=== PATIENT | male | born 1970 | race Caucasian/White ===

== ENCOUNTER 2018-11-30 10:33 | Inpatient (IN) | payer OTHER ==
[2018-11-30 11:05] VITALS: BMI 28.1
--- NOTE | 2018-11-30 12:25 | HP ---
COWS - Scale Resting Pulse: 0= [place] 80 or Below Sweatin= Chills/Flushing Restless Observation: 1= Difficult to Sit Still Pupil Size: 0= Normal to Room Light Bone or Joint Aches: 1= Mild Discomfort Runny Nose/ Eye Tearin= Runny Nose/Eyes GI Upset > 30mins: 2= Nausea/Diarrhea Tremor Observation: 2= Slight Tremor Visible Yawning Observation: 1= 1-2x During Session Anxiety or Irritability: 2=Irritable/Anxious Goose Flesh Skin: 3=Piloerection COWS Score: 15 CIWA Score Nausea/Vomitin-Mild Nausea/No Vomiting Muscle Tremors: 4-Moderate,w/Arms Extend Anxiety: 4-Mod. Anxious/Guarded Agitation: 2 Paroxysmal Sweats: 1-Minimal Palms Moist Orientation: 1-Uncertain about Date Tacttile Disturbances: 0-None Auditory Disturbances: 0-None Visual Disturbances: 1-Very Mild Sensitivity Headache: 2-Mild CIWA-Ar Total Score: 16 - Admission Criteria OASAS Guidelines: Admission for Medically Managed Detox: Requires at least one of the followin. CIWA greater than 12 2. Seizures within the past 24 hours 3. Delirium tremens within the past 24 hours 4. Hallucinations within the past 24 hours 5. Acute intervention needed for co occurring medical disorder 6. Acute intervention needed for co occurring psychiatric disorder 7. Severe withdrawal that cannot be handled at a lower level of care (continued vomiting, continued diarrhea, abnormal vital signs) requiring intravenous medication and/or fluids 8. Patient presents the following: CIWA greater than 12 Admission Criteria Met: Admission criteria met Admission ROS [facility] Chief Complaint: I'm a mess, I just want to stop using and get better, I feel like I can do it, I did it before Allergies/Adverse Reactions: Allergies Allergy/AdvReac Type Severity Reaction Status Date / Time No Known Allergies Allergy Verified 11/30/18 11:05 History of Present Illness: Others' Prescriptions 48 yo gentleman here for detox from alcohol, opiates and benzodiazepine. As noted below, he was on suboxone at one point but did not stay on it. Currently homeless and unemployed, interested in residential program after detox. History of drug related seizure, history of overdose and black outs. Longest times sober was seven years [id number]. urine tox + mdma and oxy but denies using separately - probably mixed with heroin. States he was in [facility] ED last night and given one dose of 'something' to help his withdrawal but they had no detox beds so was brought here. [facility]: Patient Name: Rolando Winn Date: 1970 Address: [address] [place], [place] [address] Sex: Male Rx Written Rx Dispensed Drug Quantity Days Supply Prescriber Name 11/14/2018 11/14/2018 buprenorphine-naloxone 4-1 mg sl film 4 2 LaksJonathon MD 11/12/2018 11/12/2018 chlordiazepoxide 10 mg capsule 30 2 Laks, Jonathon [place] 11/07/2018 11/07/2018 buprenorphine-naloxone 8-2 mg sl film 9 3 Laks, Jonathon [place] 11/07/2018 11/07/2018 chlordiazepoxide 10 mg capsule 45 3 LaksJonathon MD 08/26/2018 08/26/2018 buprenorphine-naloxone 8-2 mg sl film 3 1 Laks, Jonathon [place] 08/22/2018 08/22/2018 suboxone 2 mg-0.5 mg sl film 6 2 LaksJonathon MD 08/21/2018 08/21/2018 chlordiazepoxide 10 mg capsule 20 2 LaksJonathon MD 08/20/2018 08/20/2018 buprenorphine-naloxone 8-2 mg sl film 9 3 LaksJonathon MD 08/20/2018 08/20/2018 chlordiazepoxide 10 mg capsule 18 2 LaksJonathon MD 04/02/2018 04/02/2018 suboxone 2 mg-0.5 mg sl film 6 2 Jonathon Rascon MD 03/27/2018 03/27/2018 chlordiazepoxide 10 mg capsule 45 3 Jonathon Rascon MD 03/27/2018 03/27/2018 suboxone 8 mg-2 mg sl film 9 3 Jonathon Rascon MD Patient Name: Rolando Winn Date: 11/26/1990 Address: [address] [place] [id number] Sex: Male Rx Written Rx Dispensed Drug Quantity Days Supply Prescriber Name 11/08/2018 11/08/2018 buprenorphine-naloxone 8-2 mg sl film 6 2 Jonathon Anaya MD Patient Name: Rolando Winn Date: 1970 Address: [address] [address] Sex: Male Rx Written Rx Dispensed Drug Quantity Days Supply Prescriber Name 09/24/2018 09/24/2018 buprenorphine-naloxone 8-2 mg sl film 14 14 Bonnie Maldonado NP 09/24/2018 09/24/2018 buprenorphine-naloxone 4-1 mg sl film 14 14 Bonnie Maldonado NP Patient Name: Rolando Winn Date: 1970 Address: [place] [address] Sex: Male Rx Written Rx Dispensed Drug Quantity Days Supply Prescriber Name 09/16/2018 09/17/2018 chlordiazepoxide 25 mg capsule 8 2 Hal Abdalla Patient Name: Rolando Winn Date: 1970 Address: [address] [place] [id number] Sex: Male Rx Written Rx Dispensed Drug Quantity Days Supply Prescriber Name 06/17/2018 06/17/2018 oxycodone hcl 10 mg tablet 20 5 Breana Wahl Patient Name: Rolando Winn Date: 1970 Address: [place] [address] Sex: Male Rx Written Rx Dispensed Drug Quantity Days Supply Prescriber Name 12/31/2017 01/01/2018 suboxone 8 mg-2 mg sl film 30 30 Gunner Stacy MD * - Drugs marked with an asterisk are compound drugs. If the compound drug is made up of more than one controlled substance, then each controlled substance will be a separate row in the table. Exam Limitations: Clinical Condition - Ebola screening Have you traveled outside of the country in the last 21 days: No (N) Have you had contact with anyone from an Ebola affected area: No Do you have a fever: No - Review of Systems Constitutional: Chills, Loss of Appetite, Malaise, Changes in sleep, Weakness, Unintentional Wgt. Loss EENT: reports: Blurred Vision, Tearing, Nose Congestion Respiratory: reports: No Symptoms reported Cardiac: reports: No Symptoms Reported GI: reports: Nausea, Poor Appetite : reports: No Symptoms Reported Musculoskeletal: reports: Back Pain, Muscle Pain Integumentary: reports: No Symptoms Reported Neuro: reports: Headache, Tremors, Weakness Endocrine: reports: No Symptoms Reported Hematology: reports: No Symptoms Reported Psychiatric: reports: Judgement Intact, Orientated x3, Anxious Other Systems: Reviewed and Negative Patient History - Patient Medical History Hx Anemia: No Hx Asthma: No Hx Chronic Obstructive Pulmonary Disease (COPD): No Hx Cancer: No Hx Cardiac Disorders: No Hx Congestive Heart Failure: No Hx Hypertension: No Hx Hypercholesterolemia: No Hx Pacemaker: No HX Cerebrovascular Accident: No Hx Seizures: Yes (four years ago - drug related) Hx Dementia: No Hx Diabetes: No Hx Gastrointestinal Disorders: Yes (ACID REFLUX) Hx Liver Disease: Yes (hep C treated) Hx Genitourinary Disorders: No Hx Sexually Transmitted Disorders: No Hx Renal Disease (ESRD): No Hx Thyroid Disease: No Hx Human Immunodeficiency Virus (HIV): No (negative) Hx Hepatitis C: Yes (treated 2016 pills) Hx Depression: Yes ('normal' anxiety/depression - no meds, never hospitalized) Hx Suicide Attempt: No Hx Bipolar Disorder: No Hx Schizophrenia: No - Patient Surgical History Past Surgical History: No Hx Neurologic Surgery: No Hx Cataract Extraction: No Hx Cardiac Surgery: No Hx Lung Surgery: No Hx Breast Surgery: No Hx Breast Biopsy: No Hx Abdominal Surgery: No Hx Appendectomy: No Hx Cholecystectomy: No Hx Genitourinary Surgery: No Hx Section: No Hx Orthopedic Surgery: No Anesthesia Reaction: No - PPD History Previous Implant?: Yes Documented Results: Negative w/proof Implanted On Prior [facility] Admission?: Yes Date: 04/21/15 PPD to be Administered?: Yes - Reproductive History Patient is a Female of Child Bearing Age (11 -55 yrs old): No - Smoking Cessation Smoking history: Current every day smoker Have you smoked in the past 12 months: Yes Aproximately how many cigarettes per day: 10 Hx Chewing Tobacco Use: No Initiated information on smoking cessation: Yes 'Breaking Loose' booklet given: 11/30/18 (give on floor) - Substance & Tx. History Hx Alcohol Use: Yes Hx Substance Use: Yes Substance Use Type: Alcohol, Heroin, Tranquilizers Hx Substance Use Treatment: Yes (detox, rehab, long time ago methadone, suboxone ) - Substances abused Alcohol Substance route: Oral Frequency: 3-6 times per week Amount used: 1 six pack 12 oz/1 pint of vodka Age of first use: 17 Date of last use: 11/29/18 Heroin Substance route: Injection Frequency: Daily Amount used: 1 bundle Age of first use: 22 Date of last use: 11/30/18 Alprazolam (Xanax) Substance route: Oral Frequency: Daily Amount used: 6-8mg Age of first use: 22 Date of last use: 11/29/18 Non-Rx Methadone Substance route: Oral Frequency: 1-2 times per week Amount used: 10mg Age of first use: 46 Date of last use: 11/28/18 Admission Physical Exam [facility] - Vital Signs Vital Signs: Vital Signs - 24 hr 11/30/18 11:01 Temperature 97.5 F L Pulse Rate 67 Respiratory 14 Rate Blood Pressure 104/67 - Physical General Appearance: Yes: Nourished, Appropriately Dressed, Moderate Distress HEENTM: Yes: Hearing grossly Normal, Normocephalic, Normal Voice, Nasal Congestion, Rhinorrhea Respiratory: Yes: Normal Breath Sounds, No Respiratory Distress Neck: Yes: No masses,lesions,Nodules Breast: Yes: Breast Exam Deferred Cardiology: Yes: Regular Rhythm, Regular Rate Abdominal: Yes: Flat, Soft Genitourinary: Yes: Nocturia Back: Yes: Normal Inspection Musculoskeletal: Yes: full range of Motion, Gait Steady, Back pain, Muscle Pain Extremities: Yes: Normal Inspection, Non-Tender, Tremors Neurological: Yes: Fully Oriented, Alert, Normal Mood/Affect, Normal Response Integumentary: Yes: Normal Color, Warm, Track Torres (track torres both arms no abscess noted) Lymphatic: Yes: Within Normal Limits - Diagnostic (1) Uncomplicated opioid dependence Current Visit: Yes Status: Chronic (2) Sedative, hypnotic or anxiolytic dependence with withdrawal, uncomplicated Current Visit: Yes Status: Chronic (3) Alcohol dependence with uncomplicated withdrawal Current Visit: Yes Status: Chronic (4) Migraine headache Current Visit: Yes Status: Acute Qualifiers: Migraine type: without aura Status migrainosus presence: without status migrainosus Intractability: not intractable Qualified Code(s): G43.009 - Migraine without aura, not intractable, without status migrainosus (5) Nicotine dependence Current Visit: Yes Status: Chronic Qualifiers: Nicotine product type: cigarettes Substance use status: uncomplicated Qualified Code(s): F17.210 - Nicotine dependence, cigarettes, uncomplicated (6) History of seizure Current Visit: Yes Status: Chronic Cleared for Admission [facility] - Detox or Rehab [facility] Level of Care: Medically Managed Detox Regimen/Protocol: Methadone, Valium Breathalyzer - Breathalyzer Breathalyzer: 0 Urine Drug Screen - Test Device Lot number: [id number] Expiration date: 08/09/20 - Control Is test valid?: Yes - Results Drug screen NEGATIVE: No Urine drug screen results: MOP-Opiates, OXY-Oxycodone, MTD-Methadone, BZO- Benzodiazepines, MDMA-Ecstasy Inpatient Rehab Admission - Rehab Decision to Admit Inpatient rehab admission?: No
[2018-11-30] MEDS ORDERED: MAGNESIUM CITRATE 300 ML BOTTLE PO PRN (12:47)
[2018-11-30] MEDS ORDERED: ACETAMINOPHEN 325 MG TABLET (FP) PO PRN ×2 (12:47)
[2018-11-30] MEDS ORDERED: MENTHOL/PHENOL 1 EACH UD MM PRN (12:47)
[2018-11-30] MEDS ORDERED: MAG HYDROX/AL HYDROX/SIMETH 30 ML UNIT-DOSE CUP PO PRN (12:47)
[2018-11-30] MEDS ORDERED: IBUPROFEN 400 MG TABLET (FP) PO PRN (12:47)
[2018-11-30] MEDS ORDERED: cloNIDine HCL 0.1 MG TABLET PO PRN (12:47)
[2018-11-30] MEDS ORDERED: MAGNESIUM HYDROX 2400MG/30ML ORAL SUSPENSION 30 ML CUP PO PRN (12:47)
[2018-11-30] MEDS ORDERED: diazePAM 5 MG TABLET PO ONE (12:47)
[2018-11-30] MEDS ORDERED: METHADONE HCL 10 MG TABLET (FOR DETOX USE ONLY) PO ONE (12:47)
[2018-11-30] MEDS ORDERED: BISMUTH SUBSALICYLATE 524 MG/30 ML UD PO PRN (12:47)
[2018-11-30] MEDS: NICOTINE 14 MG/24 HOURS TOPICAL PATCH TD SCH (14:14)
[2018-11-30] MEDS: diazePAM 5 MG TABLET PO SCH ×2 (14:20→22:11)
[2018-11-30] MEDS: THIAMINE HCL 100 MG TABLET (FP) PO SCH (22:11)
[2018-11-30] MEDS: MELATONIN 5 MG TABLETS PO PRN (22:12)
[2018-12-01] MEDS: diazePAM 5 MG TABLET PO SCH ×3 (05:36→22:16)
[2018-12-01] MEDS ORDERED: METHADONE HCL 10 MG TABLET (FOR DETOX USE ONLY) ONE (08:23)
[2018-12-01] MEDS ORDERED: METHADONE HCL 5 MG TABLET (FOR DETOX USE ONLY) ONE (08:24)
[2018-12-01] MEDS: diazePAM 5 MG TABLET PO PRN ×2 (08:25→17:33)
[2018-12-01 09:17] LABS: HEMATOCRIT 37.5 % (35.4-49); HEMOGLOBIN 12.8 GM/dL (11.7-16.9); MCH 29.8 pg (25.7-33.7); MCHC 34.1 g/dl (32.0-35.9); MEAN CELL VOLUME 87.2 fl (80-96); MEAN PLT VOLUME 10.7 fl (7.5-11.1); PLATELET COUNT 178 K/MM3 (134-434); RBC 4.29 M/mm3 (4.00-5.60); RDW 13.8 % (11.9-15.9); WHITE BLOOD COUNT 5.6 K/mm3 (4.0-10.0)
[2018-12-01 09:21] LABS: ALBUMIN 3.5 g/dl (3.4-5.0); BILIRUBIN,TOTAL 0.5 mg/dL (0.2-1); BLOOD UREA NITROGEN 16.4 mg/dL (7-18); CALCIUM 8.6 mg/dL (8.5-10.1); POTASSIUM 3.7 mmol/L (3.5-5.1); TOT PROT 6.1 g/dl (6.4-8.2)
[2018-12-01] MEDS ORDERED: METHADONE (DETOX) 20 MG, METHADONE (DETOX) 5 MG PO ONE (10:00)
[2018-12-01] MEDS: NICOTINE 14 MG/24 HOURS TOPICAL PATCH TD SCH (10:20)
[2018-12-01] MEDS: PRENATAL VITAMINS W/ FOLIC ACID TABLET (FP) PO SCH (10:20)
--- NOTE | 2018-12-01 10:22 | PN ---
[facility] CIWA - CIWA Score Nausea/Vomitin-Mild Nausea/No Vomiting Muscle Tremors: 3 Anxiety: 4-Mod. Anxious/Guarded Agitation: 2 Paroxysmal Sweats: 2 Orientation: 1-Uncertain about Date (date of week) Tacttile Disturbances: 0-None Auditory Disturbances: 0-None Visual Disturbances: 0-None Headache: 1-Very Mild CIWA-Ar Total Score: 14 S COWS - Scale Resting Pulse: 0= [place] 80 or Below Sweatin= Chills/Flushing Restless Observation: 0= Sits Still Pupil Size: 0= Normal to Room Light Bone or Joint Aches: 1= Mild Discomfort Runny Nose/ Eye Tearin= Nasal Congestion GI Upset > 30mins: 2= Nausea/Diarrhea (no diarrhea) Tremor Observation of Outstretched Hands: 2= Slight Tremor Visible Yawning Observation: 2= >3x During Session Anxiety or Irritability: 2=Irritable/Anxious Goose Flesh Skin: 3=Piloerection COWS Score: 14 S Progress Note (SOAP) Subjective: doing well with valium and methadone detox regimen ate 90% breakfast tolerate food and fluid well tremor anxious discuss medication assisted treatment program 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 narcan from pharmacy Objective: 12/01/18 10:23 Vital Signs Temperature 97.3 F L 12/01/18 09:19 Pulse Rate 62 12/01/18 09:19 Respiratory Rate 18 12/01/18 09:19 Blood Pressure 102/65 12/01/18 09:19 O2 Sat by Pulse Oximetry (%) Laboratory Last Values WBC 5.6 K/mm3 (4.0-10.0) 12/01/18 07:40 RBC 4.29 M/mm3 (4.00-5.60) 12/01/18 07:40 Hgb 12.8 GM/dL (11.7-16.9) 12/01/18 07:40 Hct 37.5 % (35.4-49) 12/01/18 07:40 MCV 87.2 fl (80-96) 12/01/18 07:40 MCH 29.8 pg (25.7-33.7) 12/01/18 07:40 MCHC 34.1 g/dl (32.0-35.9) 12/01/18 07:40 RDW 13.8 % (11.9-15.9) 12/01/18 07:40 Plt Count 178 K/MM3 (134-434) 12/01/18 07:40 MPV 10.7 fl (7.5-11.1) 12/01/18 07:40 Sodium 137 mmol/L (136-145) 12/01/18 07:40 Potassium 3.7 mmol/L (3.5-5.1) 12/01/18 07:40 Chloride 102 mmol/L (98-107) 12/01/18 07:40 Carbon Dioxide 27 mmol/L (21-32) 12/01/18 07:40 Anion Gap 7 MMOL/L (8-16) L 12/01/18 07:40 BUN 16.4 mg/dL (7-18) 12/01/18 07:40 Creatinine 1.0 mg/dL (0.55-1.3) 12/01/18 07:40 Est GFR (CKD-EPI)AfAm 104.15 12/01/18 07:40 Est GFR (CKD-EPI)NonAf 89.86 12/01/18 07:40 Random Glucose 97 mg/dL (74-106) 12/01/18 07:40 Calcium 8.6 mg/dL (8.5-10.1) 12/01/18 07:40 Total Bilirubin 0.5 mg/dL (0.2-1) 12/01/18 07:40 AST 22 U/L (15-37) 12/01/18 07:40 ALT 27 U/L (13-61) 12/01/18 07:40 Alkaline Phosphatase 60 U/L (45-117) 12/01/18 07:40 Total Protein 6.1 g/dl (6.4-8.2) L 12/01/18 07:40 Albumin 3.5 g/dl (3.4-5.0) 12/01/18 07:40 RPR Titer Nonreactive (NONREACTIVE) 12/01/18 07:40 lab noted Assessment: 12/01/18 10:23 alcohol benzo opiate withdrawal sx Plan: continue valium and methadone detox regimen
[2018-12-01] MEDS: METHOCARBAMOL 500 MG TABLET PO PRN ×2 (10:23→22:17)
--- NOTE | 2018-12-01 20:27 | PN ---
[facility] Progress Note Note: Patient reports a superficial cut to his right middle finger when his right hand was caught between the seat and metal frame of the chair. Patient denies pain or discomfort at this time. Bacitracin ointment to be applied to area and cover with Axiety Vital Signs Temperature 97.6 F 12/01/18 21:33 Pulse Rate 50 L 12/01/18 21:33 Respiratory Rate 18 12/02/18 00:30 Blood Pressure 110/70 12/01/18 21:33 O2 Sat by Pulse Oximetry (%) General: Awake, alert and very anxious Head :Normocephalic EYES: Pupils PEERLA and EOMI EARS: Tympanic membrane and canals clear NOSE: Patent MOUTH : Mucous membrane dry NECK : Supple CHEST: Normal rate and Rhythm, S1S2. No rales, rhonchi or wheezing HEART: Regular rate No murmurs, gallops and rubs ABDOMEN: Soft, non distended EXTREMITIES: no clubbing NUEURO: Anxious Action: Apply Bacitracin to right middle finger and apply band aid Incident report completed
[2018-12-01] MEDS: THIAMINE HCL 100 MG TABLET (FP) PO SCH (22:16)
[2018-12-01] MEDS: MELATONIN 5 MG TABLETS PO PRN (22:16)
[2018-12-02] MEDS: diazePAM 5 MG TABLET PO SCH ×2 (05:25→17:24)
[2018-12-02] MEDS: METHOCARBAMOL 500 MG TABLET PO PRN ×3 (05:25→21:58)
[2018-12-02] MEDS: diazePAM 5 MG TABLET PO PRN ×3 (08:22→21:58)
[2018-12-02] MEDS ORDERED: METHADONE HCL 10 MG TABLET (FOR DETOX USE ONLY) PO ONE (10:00)
[2018-12-02] MEDS: PRENATAL VITAMINS W/ FOLIC ACID TABLET (FP) PO SCH (10:04)
[2018-12-02] MEDS: NICOTINE 14 MG/24 HOURS TOPICAL PATCH TD SCH (10:04)
--- NOTE | 2018-12-02 14:00 | PN ---
[facility] CIWA - CIWA Score Nausea/Vomitin-Mild Nausea/No Vomiting Muscle Tremors: 2 Anxiety: 2 Agitation: 2 Paroxysmal Sweats: No Perspiration Orientation: 0-Oriented Tacttile Disturbances: 1-Very Mild Itch/Numbness Auditory Disturbances: 0-None Visual Disturbances: 0-None Headache: 1-Very Mild CIWA-Ar Total Score: 9 S COWS - Scale Resting Pulse: 0= [place] 80 or Below Sweatin= No chills or Flushing Restless Observation: 1= Difficult to Sit Still Pupil Size: 1= Pupils >than Normal Bone or Joint Aches: 2= Severe Diffuse Aches Runny Nose/ Eye Tearin= Nasal Congestion GI Upset > 30mins: 2= Nausea/Diarrhea Tremor Observation of Outstretched Hands: 1= Tremor Venus, Not Seen Yawning Observation: 1= 1-2x During Session Anxiety or Irritability: 2=Irritable/Anxious Goose Flesh Skin: 0=Smooth Skin COWS Score: 11 [facility] Progress Note (SOAP) Subjective: ALERT,IRRITABLE,ANXIOUS,INTERRUPTED SLEEP,PAIN N THE BODY AND BACK Objective: 12/02/18 13:59 Vital Signs Temperature 98.1 F 12/02/18 13:18 Pulse Rate 54 L 12/02/18 13:18 Respiratory Rate 18 12/02/18 13:18 Blood Pressure 108/67 12/02/18 13:18 O2 Sat by Pulse Oximetry (%) 12/02/18 13:59 Laboratory Last Values WBC 5.6 K/mm3 (4.0-10.0) 12/01/18 07:40 RBC 4.29 M/mm3 (4.00-5.60) 12/01/18 07:40 Hgb 12.8 GM/dL (11.7-16.9) 12/01/18 07:40 Hct 37.5 % (35.4-49) 12/01/18 07:40 MCV 87.2 fl (80-96) 12/01/18 07:40 MCH 29.8 pg (25.7-33.7) 12/01/18 07:40 MCHC 34.1 g/dl (32.0-35.9) 12/01/18 07:40 RDW 13.8 % (11.9-15.9) 12/01/18 07:40 Plt Count 178 K/MM3 (134-434) 12/01/18 07:40 MPV 10.7 fl (7.5-11.1) 12/01/18 07:40 Sodium 137 mmol/L (136-145) 12/01/18 07:40 Potassium 3.7 mmol/L (3.5-5.1) 12/01/18 07:40 Chloride 102 mmol/L (98-107) 12/01/18 07:40 Carbon Dioxide 27 mmol/L (21-32) 12/01/18 07:40 Anion Gap 7 MMOL/L (8-16) L 12/01/18 07:40 BUN 16.4 mg/dL (7-18) 12/01/18 07:40 Creatinine 1.0 mg/dL (0.55-1.3) 12/01/18 07:40 Est GFR (CKD-EPI)AfAm 104.15 12/01/18 07:40 Est GFR (CKD-EPI)NonAf 89.86 12/01/18 07:40 Random Glucose 97 mg/dL (74-106) 12/01/18 07:40 Calcium 8.6 mg/dL (8.5-10.1) 12/01/18 07:40 Total Bilirubin 0.5 mg/dL (0.2-1) 12/01/18 07:40 AST 22 U/L (15-37) 12/01/18 07:40 ALT 27 U/L (13-61) 12/01/18 07:40 Alkaline Phosphatase 60 U/L (45-117) 12/01/18 07:40 Total Protein 6.1 g/dl (6.4-8.2) L 12/01/18 07:40 Albumin 3.5 g/dl (3.4-5.0) 12/01/18 07:40 RPR Titer Nonreactive (NONREACTIVE) 12/01/18 07:40 Assessment: 12/02/18 13:59 WITHDRAWAL SYMPTOM Plan: CONTINUE DETOX METHADONE AND VALIUM REGIMEN
[2018-12-02] MEDS: THIAMINE HCL 100 MG TABLET (FP) PO SCH (21:58)
[2018-12-02] MEDS ORDERED: hydrOXYzine PAMOATE 50 MG CAPSULE (FP) PO SCH (22:00)
[2018-12-03] MEDS ORDERED: diazePAM 5 MG TABLET PO ONE (06:00)
[2018-12-03] MEDS ORDERED: METHADONE HCL 10 MG TABLET (FOR DETOX USE ONLY) ONE (08:53)
[2018-12-03] MEDS ORDERED: METHADONE HCL 5 MG TABLET (FOR DETOX USE ONLY) ONE (08:54)
[2018-12-03] MEDS ORDERED: METHADONE (DETOX) 10 MG, METHADONE (DETOX) 5 MG PO ONE (10:00)
[2018-12-03] MEDS: PRENATAL VITAMINS W/ FOLIC ACID TABLET (FP) PO SCH (10:13)
[2018-12-03] MEDS: NICOTINE 14 MG/24 HOURS TOPICAL PATCH TD SCH (10:14)
[2018-12-03] MEDS: METHOCARBAMOL 500 MG TABLET PO PRN (10:17)
[2018-12-03] MEDS: diazePAM 5 MG TABLET PO PRN (10:17)
[2018-12-03 13:17] VITALS: BP 107/69; PULSE 48; TEMP 97.7
--- NOTE | 2018-12-03 13:34 | PN ---
[facility] CIWA - CIWA Score Nausea/Vomitin-No Nausea/No Vomiting Muscle Tremors: 2 Anxiety: 3 Agitation: 0-Normal Activity Paroxysmal Sweats: No Perspiration Orientation: 0-Oriented Tacttile Disturbances: 1-Very Mild Itch/Numbness Auditory Disturbances: 0-None Visual Disturbances: 2-Mild Sensitivity Headache: 0-None Present CIWA-Ar Total Score: 8 [facility] COWS - Scale Resting Pulse: 0= [place] 80 or Below Sweatin= Chills/Flushing Restless Observation: 0= Sits Still Pupil Size: 0= Normal to Room Light Bone or Joint Aches: 2= Severe Diffuse Aches Runny Nose/ Eye Tearin= None GI Upset > 30mins: 0= None Tremor Observation of Outstretched Hands: 2= Slight Tremor Visible Yawning Observation: 1= 1-2x During Session Anxiety or Irritability: 2=Irritable/Anxious Goose Flesh Skin: 0=Smooth Skin COWS Score: 8 [facility] Progress Note (SOAP) Subjective: Anxious, Tremors, Body Aches. Objective: PATIENT A & O X 3. IN NO ACUTE DISTRESS. 12/03/18 13:35 Vital Signs Temperature 97.7 F 12/03/18 13:15 Pulse Rate 48 L 12/03/18 13:15 Respiratory Rate 18 12/03/18 13:15 Blood Pressure 107/69 12/03/18 13:15 O2 Sat by Pulse Oximetry (%) Laboratory Tests 12/01/18 12/01/18 12/01/18 07:40 07:40 07:40 WBC 5.6 RBC 4.29 Hgb 12.8 Hct 37.5 MCV 87.2 MCH 29.8 MCHC 34.1 RDW 13.8 Plt Count 178 MPV 10.7 Sodium 137 Potassium 3.7 Chloride 102 Carbon Dioxide 27 Anion Gap 7 L BUN 16.4 Creatinine 1.0 Est GFR (CKD-EPI)AfAm 104.15 Est GFR (CKD-EPI)NonAf 89.86 Random Glucose 97 Calcium 8.6 Total Bilirubin 0.5 AST 22 ALT 27 Alkaline Phosphatase 60 Total Protein 6.1 L Albumin 3.5 RPR Titer Nonreactive LABS NOTED. Assessment: 12/03/18 13:35 WITHDRAWAL SYMPTOMS. Plan: CONTINUE DETOX.
--- NOTE | 2018-12-03 14:27 | DS ---
[facility] Detox Discharge Summary Admission Date: 11/30/18 Discharge Date: 12/03/18 - History Present History: Alcohol Dependence, Opioid Dependence, Sedative Dependence Additional Comments: PATIENT REPORTS PERSONAL MATTER THAT HE MUST ATTEND TO AND THAT HE DOES NOT WISH TO REMAIN TO COMPLETE DETOX REGIMEN. RISKS OF LEAVING DETOX UNIT AGAINST MEDICAL ADVICE AND PRIOR TO COMPLETION OF DETOX REGIMEN EXPLAINED TO PATIENT. PATIENT ADVISED TO GO IMMEDIATELY TO NEAREST ER SHOULD ANY INTOLERABLE WITHDRAWAL / DETOX SYMPTOMS DEVELOP AT ANY TIME. PATIENT VERBALIZED UNDERSTANDING OF ALL INFORMATION / RECOMMENDATIONS PRESENTED TO HIM PRIOR TO DEPARTURE FROM DETOX UNIT. PATIENT LEFT DETOX UNIT IN STABLE MEDICAL CONDITION. Pertinent Past History: Acid Reflux, History Of Seizures (Drug-Related), Hep C (Treated), History Of Migraine Headaches, Nicotine Dependence. - Physical Exam Results Vital Signs: Vital Signs Temperature 97.7 F 12/03/18 13:15 Pulse Rate 48 L 12/03/18 13:15 Respiratory Rate 18 12/03/18 13:15 Blood Pressure 107/69 12/03/18 13:15 O2 Sat by Pulse Oximetry (%) Pertinent Admission Physical Exam Findings: WITHDRAWAL SYMPTOMS. Laboratory Tests 12/01/18 12/01/18 12/01/18 07:40 07:40 07:40 WBC 5.6 RBC 4.29 Hgb 12.8 Hct 37.5 MCV 87.2 MCH 29.8 MCHC 34.1 RDW 13.8 Plt Count 178 MPV 10.7 Sodium 137 Potassium 3.7 Chloride 102 Carbon Dioxide 27 Anion Gap 7 L BUN 16.4 Creatinine 1.0 Est GFR (CKD-EPI)AfAm 104.15 Est GFR (CKD-EPI)NonAf 89.86 Random Glucose 97 Calcium 8.6 Total Bilirubin 0.5 AST 22 ALT 27 Alkaline Phosphatase 60 Total Protein 6.1 L Albumin 3.5 RPR Titer Nonreactive LABS NOTED. - Medication Discharge Medications: Ambulatory Orders Sumatriptan Succinate [Imitrex -] 50 mg PO DAILY PRN 04/19/15 Naloxone HCl [Narcan] 4 mg NS ASDIR PRN #1 spray 12/01/18 - Diagnosis (1) Alcohol dependence with uncomplicated withdrawal Status: Acute (2) History of seizure Status: Chronic (3) Migraine headache Status: Chronic Qualifiers: Migraine type: without aura Status migrainosus presence: without status migrainosus Intractability: not intractable Qualified Code(s): G43.009 - Migraine without aura, not intractable, without status migrainosus (4) Nicotine dependence Status: Chronic Qualifiers: Nicotine product type: cigarettes Substance use status: uncomplicated Qualified Code(s): F17.210 - Nicotine dependence, cigarettes, uncomplicated (5) Sedative, hypnotic or anxiolytic dependence with withdrawal, uncomplicated Status: Acute (6) Uncomplicated opioid dependence Status: Chronic - AMA Did Patient Leave Against Medical Advice: Yes (PT. HAD PERSONAL ISSUE AND DID NOT WISH TO REMAIN TO COMPLETE DETOX.)
[2018-12-04] MEDS ORDERED: METHADONE HCL 10 MG TABLET (FOR DETOX USE ONLY) PO ONE (10:00)
[2018-12-05] MEDS ORDERED: METHADONE HCL 5 MG TABLET (FOR DETOX USE ONLY) PO ONE (06:00)
== END 2018-12-03 14:06 | disposition left against medical advice (07) | DRG 770 ==
LOC: YASAS 10:33 → Y3N 13:02
PROVIDERS: ADMIT Surgery; ATTEND Surgery
PROC: HZ2ZZZZ Detoxification Services for Substance Abuse Treatment (ICD-10-PCS; principal; 2018-11-30)
DX: F11.23 Opioid dependence with withdrawal (principal); F10.230 Alcohol dependence with withdrawal, uncomplicated; F13.230 Sedative, hypnotic or anxiolytic dependence with withdrawal, uncomplicated; F17.210 Nicotine dependence, cigarettes, uncomplicated; K21.9 Gastro-esophageal reflux disease without esophagitis; S61.212A Laceration without foreign body of right middle finger without damage to nail, initial encounter; W23.0XXA Caught, crushed, jammed, or pinched between moving objects, initial encounter; Y93.89 Activity, other specified; Y92.238 Other place in hospital as the place of occurrence of the external cause; Z86.19 Personal history of other infectious and parasitic diseases; Z86.69 Personal history of other diseases of the nervous system and sense organs; Z59.0 Homelessness
CPT/HCPCS: 36415; 80053; 85027; 86593

== ENCOUNTER 2019-11-21 11:30 | Inpatient (IN) | payer OTHER ==
--- NOTE | 2019-11-21 11:52 | BHS.RME ---
Substance Use & Tx History - Substance Use History Alcohol Substance amount: six pack beers Frequency of use: Daily Substance route: Oral Date of Last Use: 11/20/19 Heroin Substance amount: 1 bundle Frequency of use: Daily Substance route: Injection (ex: intravenous or skin popping) Date of Last Use: 11/21/19 (4am) Cocaine- Powder Substance amount: $10 Frequency of use: Daily Substance route: Injection (ex: intravenous or skin popping) Date of Last Use: 11/20/19 Xanax Substance amount: 2mg -2 tabs Frequency of use: Less than 3 times per week Substance route: Oral Date of Last Use: 11/19/19 Physical/Psych/Mental Status - Behavior General Behavior: Increased activity (restlessness, agitation) Eye Contact: Normal - Cooperativeness Cooperativeness: Cooperative - Thinking Thought Processes: Tight, Logical, Goal Directed - Physical Health Problems Is patient presently having any pain?: No Does patient presently have any injuries (include location): No Does patient currently have a fever: No Is patient : No COWS - Scale Resting Pulse: 0= [place] 80 or Below Sweatin= Chills/Flushing Restless Observation: 1= Difficult to Sit Still Pupil Size: 1= Pupils >than Normal Bone or Joint Aches: 2= Severe Diffuse Aches Runny Nose/ Eye Tearin= Runny Nose/Eyes GI Upset > 30mins: 1= Stomach Cramp Tremor Observation: 2= Slight Tremor Visible Yawning Observation: 1= 1-2x During Session Anxiety or Irritability: 2=Irritable/Anxious Goose Flesh Skin: 3=Piloerection COWS Score: 16 CIWA Nausea/Vomitin Muscle Tremors: 4-Moderate,w/Arms Extend Anxiety: 3 Agitation: 4-Moderately Restless Paroxysmal Sweats: 3 Orientation: 0-Oriented Tacttile Disturbances: 0-None Auditory Disturbances: 0-None Visual Disturbances: 0-None Headache: 3-Moderate CIWA-Ar Total Score: 19
[2019-11-21 12:28] VITALS: BMI 28.4
--- NOTE | 2019-11-21 12:43 | HP ---
COWS - Scale Resting Pulse: 0= [place] 80 or Below Sweatin= Chills/Flushing Restless Observation: 1= Difficult to Sit Still Pupil Size: 1= Pupils >than Normal Bone or Joint Aches: 2= Severe Diffuse Aches Runny Nose/ Eye Tearin= Runny Nose/Eyes GI Upset > 30mins: 1= Stomach Cramp Tremor Observation: 2= Slight Tremor Visible Yawning Observation: 1= 1-2x During Session Anxiety or Irritability: 2=Irritable/Anxious Goose Flesh Skin: 3=Piloerection COWS Score: 16 CIWA Score Nausea/Vomitin Muscle Tremors: 4-Moderate,w/Arms Extend Anxiety: 3 Agitation: 4-Moderately Restless Paroxysmal Sweats: 3 Orientation: 0-Oriented Tacttile Disturbances: 0-None Auditory Disturbances: 0-None Visual Disturbances: 0-None Headache: 3-Moderate CIWA-Ar Total Score: 19 - Admission Criteria OASAS Guidelines: Admission for Medically Managed Detox: Requires at least one of the followin. CIWA greater than 12 2. Seizures within the past 24 hours 3. Delirium tremens within the past 24 hours 4. Hallucinations within the past 24 hours 5. Acute intervention needed for co occurring medical disorder 6. Acute intervention needed for co occurring psychiatric disorder 7. Severe withdrawal that cannot be handled at a lower level of care (continued vomiting, continued diarrhea, abnormal vital signs) requiring intravenous medication and/or fluids 8. Admitting History and Physical - Smoking History Smoking history: Current every day smoker Have you smoked in the past 12 months: Yes Aproximately how many cigarettes per day: 10 - Alcohol/Substance Use Hx Alcohol Use: Yes Admission [facility] Chief Complaint: " I need to stop using drugs and drinking." Allergies/Adverse Reactions: Allergies Allergy/AdvReac Type Severity Reaction Status Date / Time No Known Allergies Allergy Verified 11/21/19 12:12 History of Present Illness: 48 year old male with history of alcohol dependence with withdrawal, opioid dependence with withdrawal, cocaine use disorder, sedative use disorder. - Substance Use History Alcohol Substance amount: six pack beers Frequency of use: Daily Substance route: Oral Date of Last Use: 11/20/19 patient admits to multiple blackouts, last one 8 months ago, and endorses the need for eye rehab services aide daily Heroin Substance amount: 1 bundle Frequency of use: Daily Substance route: Injection (ex: intravenous or skin popping) Date of Last Use: 11/21/19 (4am) Patient has overdosed 5 times, last one 6 months ago and now carries narcan Cocaine- Powder Substance amount: $10 Frequency of use: Daily Substance route: Injection (ex: intravenous or skin popping) Date of Last Use: 11/20/19 Xanax Substance amount: 2mg -2 tabs Frequency of use: Less than 3 times per week Substance route: Oral Date of Last Use: 11/19/19 PMH: Migraine VARGAS, HCV treated Psurg: None Psych: None She is homeless with friends, has no legal problems. ATIYA:o CIWA=19 COWS=16 Urine Tox: CARLOS, FEN, MOP, BZO she meets criteria for detox as he has multiple failurs in past, high risk for overdose and consequences of withdrawals. Exam Limitations: No Limitations - Ebola screening Have you traveled outside of the country in the last 21 days: No Have you had contact with anyone from an Ebola affected area: No Have you been sick,other than usual withdrawal symptoms: No Do you have a fever: No - Review of Systems Constitutional: Night Sweats EENT: reports: No Symptoms Reported Respiratory: reports: No Symptoms reported Cardiac: reports: No Symptoms Reported GI: reports: No Symptoms Reported : reports: No Symptoms Reported Musculoskeletal: reports: No Symptoms Reported Integumentary: reports: No Symptoms Reported Neuro: reports: No Symptoms reported Endocrine: reports: No Symptoms Reported Hematology: reports: No Symptoms Reported Psychiatric: reports: Judgement Intact, Orientated x3, Agitated, Anxious Other Systems: Reviewed and Negative Patient History - Patient Medical History Hx Anemia: No Hx Asthma: No Hx Chronic Obstructive Pulmonary Disease (COPD): No Hx Cancer: No Hx Cardiac Disorders: No Hx Congestive Heart Failure: No Hx Hypertension: No Hx Hypercholesterolemia: No Hx Pacemaker: No HX Cerebrovascular Accident: No Hx Seizures: Yes (5 years ago) Hx Dementia: No Hx Diabetes: No Hx Gastrointestinal Disorders: No Hx Liver Disease: Yes (hep C treated) Hx Genitourinary Disorders: No Hx Sexually Transmitted Disorders: No Hx Renal Disease (ESRD): No Hx Thyroid Disease: No Hx Human Immunodeficiency Virus (HIV): No (negative) Hx Hepatitis C: Yes (treated 2016 pills) Hx Depression: No Hx Suicide Attempt: No Hx Bipolar Disorder: No Hx Schizophrenia: No - Patient Surgical History Past Surgical History: No Hx Neurologic Surgery: No Hx Cataract Extraction: No Hx Cardiac Surgery: No Hx Lung Surgery: No Hx Breast Surgery: No Hx Breast Biopsy: No Hx Abdominal Surgery: No Hx Appendectomy: No Hx Cholecystectomy: No Hx Genitourinary Surgery: No Hx Section: No Hx Orthopedic Surgery: No Anesthesia Reaction: No - PPD History Previous Implant?: Yes Documented Results: Negative w/proof Date: 12/02/18 - Smoking Cessation Smoking history: Current every day smoker Have you smoked in the past 12 months: Yes Aproximately how many cigarettes per day: 10 Hx Chewing Tobacco Use: No Initiated information on smoking cessation: Yes 'Breaking Loose' booklet given: 11/21/19 - Substances abused Alcohol Substance route: Oral Frequency: Daily Amount used: 6 cans of beer Age of first use: 17 Date of last use: 11/20/19 Heroin Substance route: Injection Frequency: Daily Amount used: 1 bundle Age of first use: 22 Date of last use: 11/21/19 Cocaine Substance route: Injection Frequency: Daily Amount used: $10 Age of first use: 22 Date of last use: 11/20/19 Alprazolam (Xanax) Substance route: Oral Frequency: 3-6 times per week Amount used: 2 mg Age of first use: 22 Date of last use: 11/19/19 Admission Physical Exam BHS - Vital Signs Vital Signs: Vital Signs - 24 hr 11/21/19 12:24 Temperature 98.0 F Pulse Rate 72 Respiratory 20 Rate Blood Pressure 131/67 - Physical General Appearance: Yes: Tremorous, Irritable, Sweating, Anxious HEENTM: Yes: EOMI, Hearing grossly Normal, Normal ENT Inspection, Normocephalic, Normal Voice, MARISSA, Pharynx Normal, Tm's normal Respiratory: Yes: Chest Non-Tender, Lungs Clear, Normal Breath Sounds, No Respiratory Distress, Accessory Muscle Use Neck: Yes: No masses,lesions,Nodules, Supple, Trachea in good position Breast: Yes: Within Normal Limits Cardiology: Yes: Regular Rhythm, Regular Rate, S1, S2 Abdominal: Yes: Normal Bowel Sounds, Non Tender, Flat, Soft Genitourinary: Yes: Within Normal Limits Back: Yes: Normal Inspection Musculoskeletal: Yes: full range of Motion, Gait Steady, Pelvis Stable Extremities: Yes: Normal Capillary Refill, Normal Inspection, Normal Range of Motion, Non-Tender Neurological: Yes: supervisor decorating II-XII NML intact, Fully Oriented, Alert, Motor Strength 5/5, Normal Mood/Affect, Normal Response Integumentary: Yes: Normal Color, Dry, Warm Lymphatic: Yes: Within Normal Limits - Diagnostic (1) Alcohol dependence with uncomplicated withdrawal Current Visit: Yes Status: Acute (2) Anxiolytic dependence Current Visit: Yes Status: Acute (3) Opioid dependence Current Visit: Yes Status: Acute (4) Acid reflux Current Visit: Yes Status: Chronic Qualifiers: Esophagitis presence: without esophagitis Qualified Code(s): K21.9 - Gastro-esophageal reflux disease without esophagitis (5) History of seizure Current Visit: Yes Status: Chronic Cleared for Admission S - Detox or Rehab [facility] Level of Care: Medically Managed Claeared for Rehab Admission: No Screened but not Admitted - Documentation of Visit Screened but not Admitted: No Breathalyzer - Breathalyzer Breathalyzer: 0 Vital Signs - Vital Signs Vital signs refused: No Temperature: 98 F Pulse Rate: 72 Respiratory Rate: 20 Blood Pressure: 131/67 BP Location: Left Arm Blood Pressure position: Sitting - Height Height: 5 ft 10 in - Weight Weight: 198 lb Weight measurement method: Standing scale - BMI Body Mass Index (BMI): 28.4 - Bowel Function Bowel Movement: No Urine Drug Screen - Test Device Lot number: [id number] Expiration date: 06/17/21 - Control Is test valid?: Yes - Results Drug screen NEGATIVE: No Urine drug screen results: CARLOS-Cocaine, FEN-Fentanyl, MOP-Opiates, BZO- Benzodiazepines Inpatient Rehab Admission - Rehab Decision to Admit Inpatient rehab admission?: No
[2019-11-21] MEDS ORDERED: NICOTINE POLACRILEX 2 MG GUM BUC PRN (12:50)
[2019-11-21] MEDS ORDERED: MENTHOL/PHENOL 1 EACH UD MM PRN (12:50)
[2019-11-21] MEDS ORDERED: chlordiazePOXIDE HCL 25 MG CAPSULE PO PRN (12:50)
[2019-11-21] MEDS ORDERED: ONDANSETRON *ODT* 4 MG TABLET SL PRN (12:50)
[2019-11-21] MEDS ORDERED: ACETAMINOPHEN 325 MG TABLET (FP) PO PRN (12:50)
[2019-11-21] MEDS ORDERED: MAG HYDROX/AL HYDROX/SIMETH 30 ML UNIT-DOSE CUP PO PRN (12:50)
[2019-11-21] MEDS ORDERED: MAGNESIUM CITRATE 300 ML BOTTLE PO PRN (12:50)
[2019-11-21] MEDS ORDERED: MAGNESIUM HYDROX 2400MG/30ML ORAL SUSPENSION 30 ML CUP PO PRN (12:50)
[2019-11-21] MEDS ORDERED: BISMUTH SUBSALICYLATE 524 MG/30 ML UD PO PRN (12:50)
[2019-11-21] MEDS ORDERED: SUMAtriptan SUCCINATE 50 MG TABLET PO PRN (12:52)
[2019-11-21] MEDS ORDERED: METHADONE HCL 10 MG TABLET (FOR DETOX USE ONLY) PO ONE (12:55)
[2019-11-21] MEDS ORDERED: cloNIDine HCL 0.1 MG TABLET PO PRN (12:55)
[2019-11-21] MEDS: PRENATAL VITAMINS W/ FOLIC ACID TABLET (FP) PO SCH (13:50)
[2019-11-21] MEDS: chlordiazePOXIDE HCL 25 MG CAPSULE PO SCH ×3 (13:50→22:15)
[2019-11-21] MEDS: hydrOXYzine PAMOATE 25 MG CAPSULE (FP) PO SCH ×3 (13:50→22:15)
[2019-11-21] MEDS: METHOCARBAMOL 500 MG TABLET PO PRN (13:50)
[2019-11-21] MEDS: NICOTINE 7 MG/24 HOURS TOPICAL PATCH TD SCH (13:51)
[2019-11-21 16:43] LABS: HEMATOCRIT 39.8 % (35.4-49); HEMOGLOBIN 13.6 GM/dL (11.7-16.9); MCH 29.4 pg (25.7-33.7); MCHC 34.1 g/dl (32.0-35.9); MEAN CELL VOLUME 86.2 fl (80-96); MEAN PLT VOLUME 9.9 fl (7.5-11.1); PLATELET COUNT 222 K/MM3 (134-434); RBC 4.61 M/mm3 (4.00-5.60); RDW 14.5 % (11.9-15.9); WHITE BLOOD COUNT 8.5 K/mm3 (4.0-10.0)
[2019-11-21 16:48] LABS: ALBUMIN 3.8 g/dl (3.4-5.0); BILIRUBIN,TOTAL 0.4 mg/dL (0.2-1); BLOOD UREA NITROGEN 11.6 mg/dL (7-18); CREATININE 1.1 mg/dL (0.55-1.3); POTASSIUM 4.2 mmol/L (3.5-5.1)
[2019-11-21] MEDS: THIAMINE HCL 100 MG TABLET (FP) PO SCH (22:15)
[2019-11-21] MEDS: MELATONIN 5 MG TABLETS PO SCH (22:15)
[2019-11-22] MEDS: chlordiazePOXIDE HCL 25 MG CAPSULE PO SCH ×4 (05:10→22:25)
[2019-11-22] MEDS: METHOCARBAMOL 500 MG TABLET PO PRN ×2 (05:10→22:28)
[2019-11-22] MEDS: hydrOXYzine PAMOATE 25 MG CAPSULE (FP) PO SCH ×5 (05:10→23:51)
[2019-11-22] MEDS: IBUPROFEN 400 MG TABLET (FP) PO PRN ×2 (07:04→22:27)
[2019-11-22] MEDS ORDERED: METHADONE HCL 5 MG TABLET (FOR DETOX USE ONLY) ONE (09:22)
[2019-11-22] MEDS ORDERED: METHADONE HCL 10 MG TABLET (FOR DETOX USE ONLY) ONE (09:22)
[2019-11-22] MEDS ORDERED: METHADONE (DETOX) 20 MG, METHADONE (DETOX) 5 MG PO ONE (10:00)
[2019-11-22] MEDS: PRENATAL VITAMINS W/ FOLIC ACID TABLET (FP) PO SCH (10:30)
--- NOTE | 2019-11-22 10:30 | PN ---
[facility] CIWA - CIWA Score Nausea/Vomitin-No Nausea/No Vomiting Muscle Tremors: 2 Anxiety: 3 Agitation: 1-Slight > Activity Paroxysmal Sweats: 3 Orientation: 0-Oriented Tacttile Disturbances: 0-None Auditory Disturbances: 0-None Visual Disturbances: 0-None Headache: 1-Very Mild CIWA-Ar Total Score: 10 BHS COWS - Scale Resting Pulse: 0= [place] 80 or Below Sweatin= Chills/Flushing Restless Observation: 1= Difficult to Sit Still Pupil Size: 0= Normal to Room Light Bone or Joint Aches: 2= Severe Diffuse Aches Runny Nose/ Eye Tearin= None GI Upset > 30mins: 0= None Tremor Observation of Outstretched Hands: 2= Slight Tremor Visible Yawning Observation: 2= >3x During Session Anxiety or Irritability: 2=Irritable/Anxious Goose Flesh Skin: 0=Smooth Skin COWS Score: 10 S Progress Note (SOAP) Subjective: c/o anxiety, irritability, interrupted sleep, sweats, muscle aches, shakes, and headache. Objective: 11/22/19 10:30 Vital Signs 11/22/19 11/22/19 05:03 08:27 Temperature 97.1 F L 97.1 F L Pulse Rate 60 73 Respiratory 18 18 Rate Blood Pressure 136/82 145/83 O2 Sat by Pulse 96 Oximetry (%) Laboratory Last Values WBC 8.5 K/mm3 (4.0-10.0) 11/21/19 12:55 RBC 4.61 M/mm3 (4.00-5.60) 11/21/19 12:55 Hgb 13.6 GM/dL (11.7-16.9) 11/21/19 12:55 Hct 39.8 % (35.4-49) 11/21/19 12:55 MCV 86.2 fl (80-96) 11/21/19 12:55 MCH 29.4 pg (25.7-33.7) 11/21/19 12:55 MCHC 34.1 g/dl (32.0-35.9) 11/21/19 12:55 RDW 14.5 % (11.9-15.9) 11/21/19 12:55 Plt Count 222 K/MM3 (134-434) D 11/21/19 12:55 MPV 9.9 fl (7.5-11.1) 11/21/19 12:55 Sodium 139 mmol/L (136-145) 11/21/19 12:55 Potassium 4.2 mmol/L (3.5-5.1) 11/21/19 12:55 Chloride 104 mmol/L (98-107) 11/21/19 12:55 Carbon Dioxide 30 mmol/L (21-32) 11/21/19 12:55 Anion Gap 6 MMOL/L (8-16) L 11/21/19 12:55 BUN 11.6 mg/dL (7-18) 11/21/19 12:55 Creatinine 1.1 mg/dL (0.55-1.3) 11/21/19 12:55 Est GFR (CKD-EPI)AfAm 92.81 11/21/19 12:55 Est GFR (CKD-EPI)NonAf 80.08 11/21/19 12:55 Random Glucose 119 mg/dL (74-106) H 11/21/19 12:55 Calcium 9.0 mg/dL (8.5-10.1) 11/21/19 12:55 Total Bilirubin 0.4 mg/dL (0.2-1) 11/21/19 12:55 AST 37 U/L (15-37) 11/21/19 12:55 ALT 64 U/L (13-61) H 11/21/19 12:55 Alkaline Phosphatase 109 U/L (45-117) 11/21/19 12:55 Total Protein 7.0 g/dl (6.4-8.2) 11/21/19 12:55 Albumin 3.8 g/dl (3.4-5.0) 11/21/19 12:55 Syphilis Serology Non-reactive (NONREACTIVE) 11/21/19 12:55 COVID-19 (GIGI) Not detected (Not Detected) 11/21/19 12:55 Labs noted. Assessment: 11/22/19 10:30 AOX3, in no acute respiratory distress. Full ROM, ambulating in the unit. Withdrawal symptoms. Plan: continue detox.
[2019-11-22] MEDS: NICOTINE 7 MG/24 HOURS TOPICAL PATCH TD SCH (10:31)
[2019-11-22] MEDS: THIAMINE HCL 100 MG TABLET (FP) PO SCH (22:25)
[2019-11-22] MEDS: MELATONIN 5 MG TABLETS PO SCH (23:48)
[2019-11-23] MEDS: hydrOXYzine PAMOATE 25 MG CAPSULE (FP) PO SCH ×5 (05:18→22:29)
[2019-11-23] MEDS: chlordiazePOXIDE HCL 25 MG CAPSULE PO SCH ×4 (05:18→22:28)
[2019-11-23] MEDS: IBUPROFEN 400 MG TABLET (FP) PO PRN ×3 (05:18→22:31)
[2019-11-23] MEDS: METHOCARBAMOL 500 MG TABLET PO PRN ×3 (05:19→22:30)
[2019-11-23] MEDS ORDERED: METHADONE HCL 10 MG TABLET (FOR DETOX USE ONLY) PO ONE (10:00)
[2019-11-23] MEDS: PRENATAL VITAMINS W/ FOLIC ACID TABLET (FP) PO SCH (10:36)
[2019-11-23] MEDS: NICOTINE 7 MG/24 HOURS TOPICAL PATCH TD SCH (10:37)
[2019-11-23] MEDS: ACETAMINOPHEN 325 MG TABLET (FP) PO PRN (10:38)
--- NOTE | 2019-11-23 13:51 | PN ---
S CIWA - CIWA Score Nausea/Vomitin-Mild Nausea/No Vomiting Muscle Tremors: 2 Anxiety: 2 Agitation: 0-Normal Activity Paroxysmal Sweats: No Perspiration Orientation: 0-Oriented Tacttile Disturbances: 0-None Auditory Disturbances: 0-None Visual Disturbances: 1-Very Mild Sensitivity Headache: 3-Moderate CIWA-Ar Total Score: 9 BHS COWS - Scale Resting Pulse: 0= [place] 80 or Below Sweatin= Chills/Flushing Restless Observation: 0= Sits Still Pupil Size: 1= Pupils >than Normal Bone or Joint Aches: 2= Severe Diffuse Aches Runny Nose/ Eye Tearin= None GI Upset > 30mins: 2= Nausea/Diarrhea Tremor Observation of Outstretched Hands: 2= Slight Tremor Visible Yawning Observation: 0= None Anxiety or Irritability: 1=Feels Anxious/Irritable Goose Flesh Skin: 0=Smooth Skin COWS Score: 9 S Progress Note (SOAP) Subjective: 48 years old male was admitted on 11/21/19 for alcohol benzo opiate withdrawal sx management treating with librium and methadone detox regiments feels tired resting in bed report headache motrin 400mg po x 1 Objective: 11/23/19 13:55 Vital Signs - 24 hr 11/22/19 11/22/19 11/23/19 16:29 20:44 05:15 Temperature 96.9 F L 96.9 F L 98.0 F Pulse Rate 79 88 60 Respiratory 18 18 18 Rate Blood Pressure 129/80 139/95 112/75 O2 Sat by Pulse 95 98 Oximetry (%) 11/23/19 11/23/19 08:45 12:18 Temperature 97.1 F L 97.3 F L Pulse Rate 59 L 60 Respiratory 18 18 Rate Blood Pressure 131/87 126/85 O2 Sat by Pulse Oximetry (%) Laboratory Tests 11/21/19 11/21/19 11/21/19 12:55 12:55 12:55 WBC 8.5 RBC 4.61 Hgb 13.6 Hct 39.8 MCV 86.2 MCH 29.4 MCHC 34.1 RDW 14.5 Plt Count 222 D MPV 9.9 Sodium 139 Potassium 4.2 Chloride 104 Carbon Dioxide 30 Anion Gap 6 L BUN 11.6 Creatinine 1.1 Est GFR (CKD-EPI)AfAm 92.81 Est GFR (CKD-EPI)NonAf 80.08 Random Glucose 119 H Calcium 9.0 Total Bilirubin 0.4 AST 37 ALT 64 H Alkaline Phosphatase 109 Total Protein 7.0 Albumin 3.8 Syphilis Serology Non-reactive COVID-19 (GIGI) 11/21/19 12:55 WBC RBC Hgb Hct MCV MCH MCHC RDW Plt Count MPV Sodium Potassium Chloride Carbon Dioxide Anion Gap BUN Creatinine Est GFR (CKD-EPI)AfAm Est GFR (CKD-EPI)NonAf Random Glucose Calcium Total Bilirubin AST ALT Alkaline Phosphatase Total Protein Albumin Syphilis Serology COVID-19 (GIGI) Not detected 11/23/19 13:56 glucose elevation fasting pending Assessment: 11/23/19 13:57 alcohol benzo opiate withdtrawal Plan: librium and methadone regiments
[2019-11-23] MEDS: THIAMINE HCL 100 MG TABLET (FP) PO SCH (22:29)
[2019-11-23] MEDS: MELATONIN 5 MG TABLETS PO SCH (22:29)
[2019-11-24] MEDS ORDERED: chlordiazePOXIDE HCL 10 MG CAPSULE PO PRN
[2019-11-24] MEDS: hydrOXYzine PAMOATE 25 MG CAPSULE (FP) PO SCH ×5 (05:07→22:25)
[2019-11-24] MEDS: chlordiazePOXIDE HCL 10 MG CAPSULE PO SCH ×4 (05:07→22:25)
[2019-11-24] MEDS ORDERED: METHADONE HCL 5 MG TABLET (FOR DETOX USE ONLY) ONE (09:21)
[2019-11-24] MEDS ORDERED: METHADONE HCL 10 MG TABLET (FOR DETOX USE ONLY) ONE (09:21)
[2019-11-24] MEDS ORDERED: METHADONE (DETOX) 10 MG, METHADONE (DETOX) 5 MG PO ONE (10:00)
[2019-11-24] MEDS: PRENATAL VITAMINS W/ FOLIC ACID TABLET (FP) PO SCH (10:03)
[2019-11-24] MEDS: NICOTINE 7 MG/24 HOURS TOPICAL PATCH TD SCH ×2 (10:04→10:08)
[2019-11-24] MEDS: METHOCARBAMOL 500 MG TABLET PO PRN ×2 (10:05→22:27)
[2019-11-24] MEDS: IBUPROFEN 400 MG TABLET (FP) PO PRN ×2 (10:05→22:26)
--- NOTE | 2019-11-24 12:06 | PN ---
S CIWA - CIWA Score Nausea/Vomitin Muscle Tremors: 2 Anxiety: 2 Agitation: 2 Paroxysmal Sweats: No Perspiration Orientation: 0-Oriented Tacttile Disturbances: 0-None Auditory Disturbances: 0-None Visual Disturbances: 0-None Headache: 2-Mild CIWA-Ar Total Score: 10 S COWS - Scale Resting Pulse: 0= [place] 80 or Below Sweatin= No chills or Flushing Restless Observation: 0= Sits Still Pupil Size: 0= Normal to Room Light Bone or Joint Aches: 1= Mild Discomfort Runny Nose/ Eye Tearin= Nasal Congestion GI Upset > 30mins: 1= Stomach Cramp Tremor Observation of Outstretched Hands: 2= Slight Tremor Visible Yawning Observation: 0= None Anxiety or Irritability: 2=Irritable/Anxious Goose Flesh Skin: 0=Smooth Skin COWS Score: 7 [facility] Progress Note (SOAP) Subjective: alert,irritable,anxious,interrupted sleep,aching pain,tremor,nausea Objective: 11/24/19 17:30 Vital Signs Temperature 97.3 F L 11/24/19 16:18 Pulse Rate 76 11/24/19 16:18 Respiratory Rate 18 11/24/19 16:18 Blood Pressure 99/62 11/24/19 16:18 O2 Sat by Pulse Oximetry (%) 96 11/24/19 14:41 Laboratory Last Values WBC 8.5 K/mm3 (4.0-10.0) 11/21/19 12:55 RBC 4.61 M/mm3 (4.00-5.60) 11/21/19 12:55 Hgb 13.6 GM/dL (11.7-16.9) 11/21/19 12:55 Hct 39.8 % (35.4-49) 11/21/19 12:55 MCV 86.2 fl (80-96) 11/21/19 12:55 MCH 29.4 pg (25.7-33.7) 11/21/19 12:55 MCHC 34.1 g/dl (32.0-35.9) 11/21/19 12:55 RDW 14.5 % (11.9-15.9) 11/21/19 12:55 Plt Count 222 K/MM3 (134-434) D 11/21/19 12:55 MPV 9.9 fl (7.5-11.1) 11/21/19 12:55 Sodium 139 mmol/L (136-145) 11/21/19 12:55 Potassium 4.2 mmol/L (3.5-5.1) 11/21/19 12:55 Chloride 104 mmol/L (98-107) 11/21/19 12:55 Carbon Dioxide 30 mmol/L (21-32) 11/21/19 12:55 Anion Gap 6 MMOL/L (8-16) L 11/21/19 12:55 BUN 11.6 mg/dL (7-18) 11/21/19 12:55 Creatinine 1.1 mg/dL (0.55-1.3) 11/21/19 12:55 Est GFR (CKD-EPI)AfAm 92.81 11/21/19 12:55 Est GFR (CKD-EPI)NonAf 80.08 11/21/19 12:55 Random Glucose 119 mg/dL (74-106) H 11/21/19 12:55 Calcium 9.0 mg/dL (8.5-10.1) 11/21/19 12:55 Total Bilirubin 0.4 mg/dL (0.2-1) 11/21/19 12:55 AST 37 U/L (15-37) 11/21/19 12:55 ALT 64 U/L (13-61) H 11/21/19 12:55 Alkaline Phosphatase 109 U/L (45-117) 11/21/19 12:55 Total Protein 7.0 g/dl (6.4-8.2) 11/21/19 12:55 Albumin 3.8 g/dl (3.4-5.0) 11/21/19 12:55 Syphilis Serology Non-reactive (NONREACTIVE) 11/21/19 12:55 COVID-19 (GIGI) Not detected (Not Detected) 11/21/19 12:55 Assessment: 11/24/19 17:31 withdrawal symptom Plan: continue detox methadone and librium regimen,initial glucose 119,fasting glucose in am
[2019-11-24] MEDS: ACETAMINOPHEN 325 MG TABLET (FP) PO PRN (13:22)
[2019-11-24] MEDS: MELATONIN 5 MG TABLETS PO SCH (22:25)
[2019-11-24] MEDS: THIAMINE HCL 100 MG TABLET (FP) PO SCH (22:25)
[2019-11-25] MEDS ORDERED: chlordiazePOXIDE HCL 10 MG CAPSULE PO SCH (05:00)
[2019-11-25] MEDS: METHOCARBAMOL 500 MG TABLET PO PRN (05:13)
[2019-11-25] MEDS: hydrOXYzine PAMOATE 25 MG CAPSULE (FP) PO SCH ×2 (05:13→10:11)
[2019-11-25 09:00] VITALS: BP 104/71; PULSE 78; TEMP 97.3
[2019-11-25] MEDS ORDERED: METHADONE HCL 10 MG TABLET (FOR DETOX USE ONLY) PO ONE (10:00)
[2019-11-25] MEDS: ACETAMINOPHEN 325 MG TABLET (FP) PO PRN (10:11)
[2019-11-25] MEDS: NICOTINE 7 MG/24 HOURS TOPICAL PATCH TD SCH (10:12)
[2019-11-25] MEDS: PRENATAL VITAMINS W/ FOLIC ACID TABLET (FP) PO SCH (10:12)
--- NOTE | 2019-11-25 10:47 | PN ---
[facility] CIWA - CIWA Score Nausea/Vomitin-Mild Nausea/No Vomiting Muscle Tremors: 2 Anxiety: 2 Agitation: 1-Slight > Activity Paroxysmal Sweats: No Perspiration Orientation: 0-Oriented Tacttile Disturbances: 1-Very Mild Itch/Numbness Auditory Disturbances: 0-None Visual Disturbances: 0-None Headache: 1-Very Mild CIWA-Ar Total Score: 8 BHS COWS - Scale Resting Pulse: 0= [place] 80 or Below Sweatin= No chills or Flushing Restless Observation: 0= Sits Still Pupil Size: 1= Pupils >than Normal Bone or Joint Aches: 1= Mild Discomfort Runny Nose/ Eye Tearin= Nasal Congestion GI Upset > 30mins: 1= Stomach Cramp Tremor Observation of Outstretched Hands: 2= Slight Tremor Visible Yawning Observation: 0= None Anxiety or Irritability: 2=Irritable/Anxious Goose Flesh Skin: 0=Smooth Skin COWS Score: 8 S Progress Note (SOAP) Subjective: alert,irritable,anxious,interrupted sleep,tremor,pain in the body and back,aching Objective: 11/25/19 12:05 Vital Signs Temperature 97.3 F L 11/25/19 08:55 Pulse Rate 78 11/25/19 08:55 Respiratory Rate 18 11/25/19 08:55 Blood Pressure 104/71 11/25/19 08:55 O2 Sat by Pulse Oximetry (%) 97 11/25/19 05:51 11/25/19 12:06 Laboratory Results - last 24 hr 11/25/19 08:00 Fasting Glucose 146 H Assessment: 11/25/19 12:06 withdrawal symptom Plan: continue detox,no concentrated sweet,bgm bid,hbA1c,discharge in am
--- NOTE | 2019-11-25 13:10 | PN ---
[facility] Progress Note Note: patient would like to be discharged today,instead of tomorrow alert,no withdrawal symptom address about life style diet modification no sugar, follow up with medical provider in [facility] for discharge today
--- NOTE | 2019-11-25 13:11 | DS ---
[facility] Detox Discharge Summary Admission Date: 11/21/19 Discharge Date: 11/25/19 - History Present History: Alcohol Dependence, Cocaine Dependence, Opioid Dependence, Sedative Dependence Additional Comments: alert,oriented x 3 ambulation on the unit lung clear on auscultation bilaterally abdomen soft,no pain,no tenderness no withdrawal symptom stable on discharge advise life style modification on diet no sugar,follow up with medical provider in [place] for follow up on glucose total time of discharge 35 minutes follow up with after care program out patient in [place] Pertinent Past History: migraine headache - Physical Exam Results Vital Signs: Vital Signs Temperature 97.3 F L 11/25/19 08:55 Pulse Rate 78 11/25/19 08:55 Respiratory Rate 18 11/25/19 08:55 Blood Pressure 104/71 11/25/19 08:55 O2 Sat by Pulse Oximetry (%) 97 11/25/19 05:51 Pertinent Admission Physical Exam Findings: withdrawal sings and symptom Laboratory Last Values WBC 8.5 K/mm3 (4.0-10.0) 11/21/19 12:55 RBC 4.61 M/mm3 (4.00-5.60) 11/21/19 12:55 Hgb 13.6 GM/dL (11.7-16.9) 11/21/19 12:55 Hct 39.8 % (35.4-49) 11/21/19 12:55 MCV 86.2 fl (80-96) 11/21/19 12:55 MCH 29.4 pg (25.7-33.7) 11/21/19 12:55 MCHC 34.1 g/dl (32.0-35.9) 11/21/19 12:55 RDW 14.5 % (11.9-15.9) 11/21/19 12:55 Plt Count 222 K/MM3 (134-434) D 11/21/19 12:55 MPV 9.9 fl (7.5-11.1) 11/21/19 12:55 Sodium 139 mmol/L (136-145) 11/21/19 12:55 Potassium 4.2 mmol/L (3.5-5.1) 11/21/19 12:55 Chloride 104 mmol/L (98-107) 11/21/19 12:55 Carbon Dioxide 30 mmol/L (21-32) 11/21/19 12:55 Anion Gap 6 MMOL/L (8-16) L 11/21/19 12:55 BUN 11.6 mg/dL (7-18) 11/21/19 12:55 Creatinine 1.1 mg/dL (0.55-1.3) 11/21/19 12:55 Est GFR (CKD-EPI)AfAm 92.81 11/21/19 12:55 Est GFR (CKD-EPI)NonAf 80.08 11/21/19 12:55 Random Glucose 119 mg/dL (74-106) H 11/21/19 12:55 Fasting Glucose 146 mg/dL (74-106) H 11/25/19 08:00 Calcium 9.0 mg/dL (8.5-10.1) 11/21/19 12:55 Total Bilirubin 0.4 mg/dL (0.2-1) 11/21/19 12:55 AST 37 U/L (15-37) 11/21/19 12:55 ALT 64 U/L (13-61) H 11/21/19 12:55 Alkaline Phosphatase 109 U/L (45-117) 11/21/19 12:55 Total Protein 7.0 g/dl (6.4-8.2) 11/21/19 12:55 Albumin 3.8 g/dl (3.4-5.0) 11/21/19 12:55 Syphilis Serology Non-reactive (NONREACTIVE) 11/21/19 12:55 COVID-19 (GIGI) Not detected (Not Detected) 11/21/19 12:55 Vital Signs Temperature 97.3 F L 11/25/19 08:55 Pulse Rate 78 11/25/19 08:55 Respiratory Rate 18 11/25/19 08:55 Blood Pressure 104/71 11/25/19 08:55 O2 Sat by Pulse Oximetry (%) 97 11/25/19 05:51 - Treatment Hospital Course: Detox Protocol Followed, Detoxed Safely, Responded well, Discharged Condition Good Patient has Accepted a Rehab Referral to: [facility] - Medication Discharge Medications: Ambulatory Orders Sumatriptan Succinate [Imitrex -] 50 mg PO DAILY PRN 04/19/15 Naloxone HCl [Narcan] 4 mg NS ASDIR PRN #1 spray 12/01/18 - Diagnosis (1) Opioid dependence Current Visit: Yes Status: Acute (2) Cocaine abuse Current Visit: Yes Status: Acute (3) Alcohol dependence with uncomplicated withdrawal Current Visit: Yes Status: Acute (4) Anxiolytic dependence Current Visit: Yes Status: Acute (5) Migraine headache Current Visit: No Status: Chronic Qualifiers: Migraine type: without aura Status migrainosus presence: without status migrainosus Intractability: not intractable Qualified Code(s): G43.009 - Migraine without aura, not intractable, without status migrainosus (6) Nicotine dependence Current Visit: No Status: Chronic Qualifiers: Nicotine product type: cigarettes Substance use status: uncomplicated Qualified Code(s): F17.210 - Nicotine dependence, cigarettes, uncomplicated (7) Seizure Current Visit: Yes Status: Acute - AMA Did Patient Leave Against Medical Advice: No
[2019-11-26] MEDS ORDERED: chlordiazePOXIDE HCL 10 MG CAPSULE PO ONE (05:00)
[2019-11-26] MEDS ORDERED: METHADONE HCL 5 MG TABLET (FOR DETOX USE ONLY) PO ONE (06:00)
== END 2019-11-25 13:40 | disposition home or self-care (01) | DRG 773 ==
LOC: YASAS 11:30 → Y3N 12:43
PROVIDERS: ADMIT Allergy & Immunology; ATTEND Allergy & Immunology
PROC: HZ2ZZZZ Detoxification Services for Substance Abuse Treatment (ICD-10-PCS; principal; 2019-11-21)
DX: F10.230 Alcohol dependence with withdrawal, uncomplicated (principal); F11.23 Opioid dependence with withdrawal; F14.20 Cocaine dependence, uncomplicated; F13.20 Sedative, hypnotic or anxiolytic dependence, uncomplicated; F17.210 Nicotine dependence, cigarettes, uncomplicated; G43.009 Migraine without aura, not intractable, without status migrainosus; K21.9 Gastro-esophageal reflux disease without esophagitis; R73.9 Hyperglycemia, unspecified; Z86.69 Personal history of other diseases of the nervous system and sense organs; Z86.19 Personal history of other infectious and parasitic diseases; Z59.0 Homelessness
CPT/HCPCS: 36415; 80053; 82947; 85027; 86780; U0003

== ENCOUNTER 2020-06-21 12:22 | Inpatient (IN) | payer OTHER ==
[2020-06-21] MEDS ORDERED: NALOXONE (NARCAN) HCL 4 MG/0.1 ML SPRAY NS PRN (14:50)
[2020-06-21] MEDS ORDERED: SUMAtriptan SUCCINATE 50 MG TABLET PO PRN (14:50)
[2020-06-21] MEDS ORDERED: MAG HYDROX/AL HYDROX/SIMETH 30 ML UNIT-DOSE CUP PO PRN (14:51)
[2020-06-21] MEDS ORDERED: diazePAM 5 MG TABLET PO PRN (14:51)
[2020-06-21] MEDS ORDERED: MAGNESIUM CITRATE 300 ML BOTTLE PO PRN (14:51)
[2020-06-21] MEDS ORDERED: MAGNESIUM HYDROX 2400MG/30ML ORAL SUSPENSION 30 ML CUP PO PRN (14:51)
[2020-06-21] MEDS ORDERED: METHADONE HCL 10 MG TABLET (FOR DETOX USE ONLY) PO ONE (14:51)
[2020-06-21] MEDS ORDERED: ONDANSETRON *ODT* 4 MG TABLET SL PRN (14:51)
[2020-06-21] MEDS ORDERED: BISMUTH SUBSALICYLATE 262 MG/15 ML BTL PO PRN (14:51)
[2020-06-21] MEDS ORDERED: ACETAMINOPHEN 325 MG TABLET (FP) PO PRN ×2 (14:51)
[2020-06-21] MEDS ORDERED: cloNIDine HCL 0.1 MG TABLET PO PRN (14:51)
[2020-06-21] MEDS ORDERED: NICOTINE POLACRILEX 2 MG GUM BUC PRN (14:51)
[2020-06-21] MEDS ORDERED: MENTHOL/PHENOL 1 EACH UD MM PRN (14:51)
[2020-06-21 15:26] VITALS: BMI 24.3
[2020-06-21] MEDS: NICOTINE 21 MG/24 HOURS TOPICAL PATCH TD SCH (16:19)
[2020-06-21] MEDS: diazePAM 5 MG TABLET PO SCH ×2 (16:20→22:27)
[2020-06-21] MEDS: PRENATAL VITAMINS W/ FOLIC ACID TABLET (FP) PO SCH (16:22)
[2020-06-21 17:14] LABS: HEMATOCRIT 35.4 % (35.4-49); HEMOGLOBIN 11.8 GM/dL (11.7-16.9); MCH 28.8 pg (25.7-33.7); MCHC 33.5 g/dl (32.0-35.9); MEAN PLT VOLUME 8.9 fl (7.5-11.1); PLATELET COUNT 314 K/MM3 (134-434); RBC 4.12 M/mm3 (4.00-5.60); RDW 13.3 % (11.9-15.9); WHITE BLOOD COUNT 7.1 K/mm3 (4.0-10.0)
[2020-06-21 17:19] LABS: CALCIUM 9.2 mg/dL (8.5-10.1)
[2020-06-21 17:20] LABS: ALBUMIN 3.5 g/dl (3.4-5.0); BLOOD UREA NITROGEN 12.6 mg/dL (7-18)
[2020-06-21 17:26] LABS: BILIRUBIN,TOTAL 0.3 mg/dL (0.2-1); TOT PROT 6.8 g/dl (6.4-8.2)
[2020-06-21] MEDS: METHOCARBAMOL 500 MG TABLET PO PRN (17:39)
[2020-06-21] MEDS: hydrOXYzine PAMOATE 25 MG CAPSULE (FP) PO SCH ×2 (17:40→22:27)
[2020-06-21] MEDS: THIAMINE HCL 100 MG TABLET (FP) PO SCH (22:27)
[2020-06-21] MEDS: MELATONIN 5 MG TABLETS PO SCH (22:28)
[2020-06-22] MEDS: diazePAM 5 MG TABLET PO SCH ×4 (05:33→22:35)
[2020-06-22] MEDS: hydrOXYzine PAMOATE 25 MG CAPSULE (FP) PO SCH ×5 (05:33→22:34)
[2020-06-22] MEDS ORDERED: METHADONE HCL 5 MG TABLET (FOR DETOX USE ONLY) ONE (09:07)
[2020-06-22] MEDS ORDERED: METHADONE HCL 10 MG TABLET (FOR DETOX USE ONLY) ONE (09:07)
[2020-06-22] MEDS ORDERED: METHADONE (DETOX) 20 MG, METHADONE (DETOX) 5 MG PO ONE (10:00)
[2020-06-22] MEDS: PRENATAL VITAMINS W/ FOLIC ACID TABLET (FP) PO SCH (10:12)
[2020-06-22] MEDS: NICOTINE 21 MG/24 HOURS TOPICAL PATCH TD SCH (10:12)
[2020-06-22] MEDS: IBUPROFEN 400 MG TABLET (FP) PO PRN (17:50)
[2020-06-22] MEDS: METHOCARBAMOL 500 MG TABLET PO PRN (17:52)
[2020-06-22] MEDS: THIAMINE HCL 100 MG TABLET (FP) PO SCH (22:34)
[2020-06-22] MEDS: MELATONIN 5 MG TABLETS PO SCH (22:34)
[2020-06-23] MEDS: hydrOXYzine PAMOATE 25 MG CAPSULE (FP) PO SCH ×2 (05:55→10:18)
[2020-06-23] MEDS ORDERED: diazePAM 5 MG TABLET PO SCH (06:00)
[2020-06-23 06:37] VITALS: TEMP 96.9
[2020-06-23 08:56] VITALS: BP 105/66; PULSE 77
[2020-06-23] MEDS ORDERED: METHADONE HCL 10 MG TABLET (FOR DETOX USE ONLY) PO ONE (10:00)
[2020-06-23] MEDS: PRENATAL VITAMINS W/ FOLIC ACID TABLET (FP) PO SCH (10:14)
[2020-06-23] MEDS: NICOTINE 21 MG/24 HOURS TOPICAL PATCH TD SCH (10:15)
[2020-06-23] MEDS: METHOCARBAMOL 500 MG TABLET PO PRN (10:16)
[2020-06-23] MEDS: IBUPROFEN 400 MG TABLET (FP) PO PRN (10:16)
[2020-06-23] MEDS ORDERED: CLINDAMYCIN HCL 150 MG CAPSULE (FP) PO SCH (12:00)
[2020-06-24] MEDS ORDERED: diazePAM 5 MG TABLET PO SCH (06:00)
[2020-06-24] MEDS ORDERED: METHADONE (DETOX) 10 MG, METHADONE (DETOX) 5 MG PO ONE (10:00)
[2020-06-25] MEDS ORDERED: diazePAM 5 MG TABLET PO ONE (06:00)
[2020-06-25] MEDS ORDERED: METHADONE HCL 10 MG TABLET (FOR DETOX USE ONLY) PO ONE (10:00)
[2020-06-26] MEDS ORDERED: METHADONE HCL 5 MG TABLET (FOR DETOX USE ONLY) PO ONE (06:00)
== END 2020-06-23 10:42 | disposition left against medical advice (07) | DRG 770 ==
LOC: YASAS 12:22 → Y6N 15:16 → Y3N 15:17
PROVIDERS: ADMIT Allergy & Immunology; ATTEND Allergy & Immunology
PROC: HZ2ZZZZ Detoxification Services for Substance Abuse Treatment (ICD-10-PCS; principal; 2020-06-22)
DX: F11.23 Opioid dependence with withdrawal (principal); F13.230 Sedative, hypnotic or anxiolytic dependence with withdrawal, uncomplicated; F14.20 Cocaine dependence, uncomplicated; F17.210 Nicotine dependence, cigarettes, uncomplicated; L03.113 Cellulitis of right upper limb; L03.314 Cellulitis of groin; L03.221 Cellulitis of neck; G43.909 Migraine, unspecified, not intractable, without status migrainosus; B18.2 Chronic viral hepatitis C; Z86.16 Personal history of COVID-19
CPT/HCPCS: 36415; 80053; 85027; 86780; C9803; U0003; U0005

== ENCOUNTER 2020-09-03 15:42 | Inpatient (IN) | payer OTHER ==
[2020-09-03 16:42] VITALS: BMI 23.3
[2020-09-03] MEDS ORDERED: METHADONE HCL 10 MG TABLET (FOR DETOX USE ONLY) PO ONE (19:33)
[2020-09-03] MEDS ORDERED: MAGNESIUM CITRATE 300 ML BOTTLE PO PRN (19:33)
[2020-09-03] MEDS ORDERED: MAGNESIUM HYDROX 2400MG/30ML ORAL SUSPENSION 30 ML CUP PO PRN (19:33)
[2020-09-03] MEDS ORDERED: ACETAMINOPHEN 325 MG TABLET (FP) PO PRN (19:33)
[2020-09-03] MEDS ORDERED: BISMUTH SUBSALICYLATE 524 MG/30 ML PO PRN (19:33)
[2020-09-03] MEDS ORDERED: NICOTINE POLACRILEX 2 MG GUM BUC PRN (19:33)
[2020-09-03] MEDS ORDERED: cloNIDine HCL 0.1 MG TABLET PO PRN (19:33)
[2020-09-03] MEDS ORDERED: IBUPROFEN 400 MG TABLET (FP) PO PRN (19:33)
[2020-09-03] MEDS ORDERED: MENTHOL/PHENOL 1 EACH UD MM PRN (19:33)
[2020-09-03] MEDS ORDERED: ONDANSETRON *ODT* 4 MG TABLET SL PRN (19:33)
[2020-09-03] MEDS ORDERED: MAG HYDROX/AL HYDROX/SIMETH 30 ML UNIT-DOSE CUP PO PRN (19:33)
[2020-09-03] MEDS: METHOCARBAMOL 500 MG TABLET PO PRN (22:54)
[2020-09-03] MEDS: THIAMINE HCL 100 MG TABLET (FP) PO SCH (22:55)
[2020-09-03] MEDS: diazePAM 5 MG TABLET PO SCH (22:55)
[2020-09-03] MEDS: MELATONIN 5 MG TABLETS PO SCH (22:56)
[2020-09-04] MEDS: diazePAM 5 MG TABLET PO SCH ×4 (05:21→22:34)
[2020-09-04] MEDS ORDERED: METHADONE HCL 5 MG TABLET (FOR DETOX USE ONLY) ONE (09:20)
[2020-09-04] MEDS ORDERED: METHADONE HCL 10 MG TABLET (FOR DETOX USE ONLY) ONE (09:20)
[2020-09-04] MEDS ORDERED: METHADONE (DETOX) 20 MG, METHADONE (DETOX) 5 MG PO ONE (10:00)
[2020-09-04] MEDS: NICOTINE 14 MG/24 HOURS TOPICAL PATCH TD SCH (11:23)
[2020-09-04] MEDS: PRENATAL VITAMINS W/ FOLIC ACID TABLET (FP) PO SCH (11:23)
[2020-09-04] MEDS: ACETAMINOPHEN 325 MG TABLET (FP) PO PRN ×2 (11:25→22:35)
[2020-09-04] MEDS: METHOCARBAMOL 500 MG TABLET PO PRN ×2 (11:27→18:10)
[2020-09-04] MEDS: hydrOXYzine PAMOATE 25 MG CAPSULE (FP) PO PRN ×2 (11:27→22:35)
[2020-09-04] MEDS: IBUPROFEN 600 MG TABLET (FP) PO PRN (18:10)
[2020-09-04] MEDS: THIAMINE HCL 100 MG TABLET (FP) PO SCH (22:35)
[2020-09-04] MEDS: MELATONIN 5 MG TABLETS PO SCH (22:35)
[2020-09-05] MEDS: IBUPROFEN 600 MG TABLET (FP) PO PRN ×3 (04:32→22:04)
[2020-09-05] MEDS: METHOCARBAMOL 500 MG TABLET PO PRN ×2 (04:33→22:03)
[2020-09-05] MEDS: diazePAM 5 MG TABLET PO SCH ×3 (06:02→22:04)
[2020-09-05] MEDS: hydrOXYzine PAMOATE 25 MG CAPSULE (FP) PO PRN ×3 (06:02→22:04)
[2020-09-05] MEDS ORDERED: METHADONE HCL 10 MG TABLET (FOR DETOX USE ONLY) PO ONE (10:00)
[2020-09-05] MEDS: NICOTINE 14 MG/24 HOURS TOPICAL PATCH TD SCH (10:16)
[2020-09-05] MEDS: PRENATAL VITAMINS W/ FOLIC ACID TABLET (FP) PO SCH (10:16)
[2020-09-05] MEDS: ACETAMINOPHEN 325 MG TABLET (FP) PO PRN ×2 (10:17→17:27)
[2020-09-05] MEDS: diazePAM 5 MG TABLET PO PRN ×2 (10:20→17:25)
[2020-09-05] MEDS: THIAMINE HCL 100 MG TABLET (FP) PO SCH (22:03)
[2020-09-05] MEDS: MELATONIN 5 MG TABLETS PO SCH (22:08)
[2020-09-06] MEDS: ACETAMINOPHEN 325 MG TABLET (FP) PO PRN ×2 (02:05→10:02)
[2020-09-06] MEDS: IBUPROFEN 600 MG TABLET (FP) PO PRN (05:28)
[2020-09-06] MEDS: METHOCARBAMOL 500 MG TABLET PO PRN ×2 (05:29→12:32)
[2020-09-06] MEDS: hydrOXYzine PAMOATE 25 MG CAPSULE (FP) PO PRN ×2 (05:30→10:02)
[2020-09-06] MEDS ORDERED: diazePAM 5 MG TABLET PO SCH (06:00)
[2020-09-06] MEDS: diazePAM 5 MG TABLET PO PRN ×2 (06:55→12:32)
[2020-09-06] MEDS ORDERED: METHADONE HCL 5 MG TABLET (FOR DETOX USE ONLY) ONE (08:39)
[2020-09-06] MEDS ORDERED: METHADONE HCL 10 MG TABLET (FOR DETOX USE ONLY) ONE (08:40)
[2020-09-06 09:16] VITALS: BP 133/83; PULSE 82; TEMP 97.7
[2020-09-06] MEDS: NICOTINE 14 MG/24 HOURS TOPICAL PATCH TD SCH (10:00)
[2020-09-06] MEDS: PRENATAL VITAMINS W/ FOLIC ACID TABLET (FP) PO SCH (10:00)
[2020-09-06] MEDS ORDERED: METHADONE (DETOX) 10 MG, METHADONE (DETOX) 5 MG PO ONE (10:00)
[2020-09-06] MEDS ORDERED: hydrOXYzine PAMOATE 50 MG CAPSULE (FP) PO SCH (11:00)
[2020-09-06] MEDS ORDERED: COVID-19 VAC,AD26(JANSSEN)/PF 0.5 ML IM ONE (12:00)
[2020-09-06] MEDS ORDERED: MELATONIN 5 MG TABLETS PO SCH (22:00)
[2020-09-07] MEDS ORDERED: diazePAM 5 MG TABLET PO ONE (06:00)
[2020-09-07] MEDS ORDERED: METHADONE HCL 10 MG TABLET (FOR DETOX USE ONLY) PO ONE (10:00)
[2020-09-08] MEDS ORDERED: METHADONE HCL 5 MG TABLET (FOR DETOX USE ONLY) PO ONE (06:00)
== END 2020-09-06 13:04 | disposition left against medical advice (07) | DRG 770 ==
LOC: YASAS 15:42 → Y6N 18:45
PROVIDERS: ADMIT Allergy & Immunology; ATTEND Allergy & Immunology
PROC: HZ2ZZZZ Detoxification Services for Substance Abuse Treatment (ICD-10-PCS; principal; 2020-09-03)
DX: F11.23 Opioid dependence with withdrawal (principal); F13.230 Sedative, hypnotic or anxiolytic dependence with withdrawal, uncomplicated; F14.20 Cocaine dependence, uncomplicated; F17.210 Nicotine dependence, cigarettes, uncomplicated; G43.009 Migraine without aura, not intractable, without status migrainosus; M54.41 Lumbago with sciatica, right side; R63.4 Abnormal weight loss; Z68.23 Body mass index [BMI] 23.0-23.9, adult; Z86.16 Personal history of COVID-19; Z86.19 Personal history of other infectious and parasitic diseases
CPT/HCPCS: 0031A; 36415; 86780; 91303; 93005; 93010; C9803; U0003; U0005